=== PATIENT | female | born 1975 | race Caucasian/White ===

== ENCOUNTER → 2022-07-30 15:46 | Outpatient (BNVA) | payer OTHER, SELFPAY | PROVIDERS: PCP Internal Medicine; Visit Provider Internal Medicine Endocrinology, Diabetes & Metabolism | DX: Z13.89 Encounter for screening for other disorder (principal) ==

== ENCOUNTER 2022-07-31 08:34 | Outpatient (REF) | payer OTHER, SELFPAY ==
[2022-07-31 10:24] LABS: Free T4 (Free Thyroxine) 1.05 ng/dL (0.71-1.85); Thyroid Stimulating Hormone 0.75 uIU/mL (0.32-4.0)
[2022-08-05 14:54] LABS: Metanephrine, Free 101 pg/mL (<=57); Normetanephrines, Free 125 pg/mL (<=148); Total Metanephrine, Free 226 pg/mL (<=205)
== END 2022-07-31 08:35 | disposition home or self-care (01) ==
LOC: HO.10HDL 08:34
PROVIDERS: Visit Provider Internal Medicine Endocrinology, Diabetes & Metabolism
DX: R63.4 Abnormal weight loss (principal); E03.9 Hypothyroidism, unspecified; R00.2 Palpitations; U09.9 Post COVID-19 condition, unspecified
CPT/HCPCS: 36415; 82533; 83835; 84439; 84443

== ENCOUNTER 2022-08-13 10:56 | Outpatient (REF) | payer OTHER, SELFPAY ==
[2022-08-13 12:38] LABS: Creatinine, mg/dL 80.03
[2022-08-13 13:02] LABS: Creatinine, 24Hr Urine 1.1 G/Day (1.0-2.0); Total Volume 24 Hour Urine 1425 mL
[2022-08-22 16:33] LABS: Metanephrine, Free 24U 171 mcg/24 h (58-203); Normetanephrine, Free 24U 181 mcg/24 h (88-649); Total Metanephrine, Free 24U 352 mcg/24 h (182-739); Total Volume 24U 1425 mL
== END 2022-08-13 10:57 | disposition home or self-care (01) ==
LOC: HO.LNP 10:56
PROVIDERS: Visit Provider Internal Medicine Endocrinology, Diabetes & Metabolism
DX: R63.4 Abnormal weight loss (principal)
CPT/HCPCS: 82570; 83835

== ENCOUNTER → 2022-09-03 09:45 | Outpatient (BNVA) | payer OTHER, SELFPAY | PROVIDERS: PCP Internal Medicine; Visit Provider Internal Medicine Endocrinology, Diabetes & Metabolism ==